=== PATIENT | male | born 1970 | race Caucasian/White ===

== ENCOUNTER 2023-06-22 06:23 | Emergency (ER) | payer MEDICARE, SELFPAY ==
[2023-06-22] VITALS (7 sets, daily range): BP systolic 108–166; BP diastolic 78–101; PULSE 99–113; RESP 12–18; TEMP 36.7–36.9; O2SAT 97–98; BMI 23.6
--- NOTE | 2023-06-22 06:27 | CT_ITS ---
PROCEDURE INFORMATION: Exam: CT Head Without Contrast Exam date and time: 06/22/2023 6:38 AM Age: 53 years old Clinical indication: Other: Seizures; Additional info: New onset seizures TECHNIQUE: Imaging protocol: Computed tomography of the head without contrast. Radiation optimization: All CT scans at this facility use at least one of these dose optimization techniques: automated exposure control; mA and/or kV adjustment per patient size (includes targeted exams where dose is matched to clinical indication); or iterative reconstruction. COMPARISON: No relevant prior studies available. FINDINGS: Brain: Normal. No hemorrhage. Unremarkable white matter. No mass effect. Cerebral ventricles: No ventriculomegaly. Paranasal sinuses: Visualized sinuses are unremarkable. No fluid levels. Mastoid air cells: Visualized mastoid air cells are well aerated. Bones/joints: Unremarkable. No acute fracture. Soft tissues: Unremarkable. IMPRESSION: No acute intracranial abnormality.
--- NOTE | 2023-06-22 06:28 | XR_ITS ---
PROCEDURE INFORMATION: Exam: XR Chest Exam date and time: 06/22/2023 7:33 AM Age: 53 years old Clinical indication: Other: Hyponatremia, seizures TECHNIQUE: Imaging protocol: Radiologic exam of the chest. Views: 1 view. COMPARISON: CT ANGIO NECK 06/22/2023 7:31 AM FINDINGS: Tubes, catheters and devices: Surgical clips over the left scapula Lungs: Unremarkable. No consolidation. Pleural spaces: Unremarkable. No pleural effusion. No pneumothorax. Heart/Mediastinum: Unremarkable. No cardiomegaly. Bones/joints: Unremarkable. IMPRESSION: No acute process
--- NOTE | 2023-06-22 06:35 | [facility].EDGENADL ---
Discharge Plan Disposition Patient Disposition: Home, Self-Care Referrals Follow up/Referrals: Ovidio Almeida MD [Primary Care Provider] - See instructions Activity Restrictions/Add. Instructions Additional Instructions/Restrictions: Follow-up with your family doctor regarding this visit to the emergency department. Also discussed follow-up with neurology, Dr. Davis to get a referral for further seizure workup. Call your family doctor to establish care for this visit to the emergency department and schedule follow-up within 48 hours to ensure improvement. If you have any worsening of your condition or any other concerning signs or symptoms, return to the emergency department or your primary care doctor for further evaluation. Seizure precautions - do not do any of these activities until cleared by your neurologist: 1) avoid sleep deprivation 2) avoid open bodies of water and open flames 3) avoid swimming alone 4) take showers, do not take baths 5) avoid any situation where loss of consciousness may predispose to injury or 6) avoid driving Clinical Impressions Clinical Impression: Seizure-like activity, Panic attack Instructions Patient Instructions: DI for Seizure Disorder -- Adult, DI for Seizure (Not Epilepsy/Seizure Disorder), DI for Seizure Disorder -- Child Discharge ED Provider: Joey Ortega General Adult HPI <Chuyita Prince MD - Last Filed: 06/22/23 07:17> General Chief complaint: Seizure Stated complaint: Seizure Time Seen by Provider: 06/22/23 06:27 History of Present Illness HPI narrative: Alex Hillman is a 53-year-old male with previous medical history of hyponatremia and insulin-dependent type 2 diabetes currently not on treatment presenting with new onset seizures. Patient's is at the bedside and supplements the history. She states he drinks a case of bottled arteaga every day and is constantly drinking water and other drinks. His sugar is uncontrolled and he refuses to take any medications aside from Lyrica for his postherpetic neuralgia. Approximately 24 hours ago patient began to seem confused. His describes tangential speech and seeing things that were not there. Over the following hours he had approximately 5 episodes of transiently becoming dazed then having involuntary spasms of his face and then seeming tired afterwards concerning for possible seizure. His encouraged him to be evaluated at that time but he refused. Overnight he had 3 episodes that were more consistent with overt generalized tonic-clonic seizures. His describes episodes up to 5 minutes in duration of generalized tonic-clonic seizures involving convulsions and rigidity of bilateral upper extremities. He had incontinence to urine. She called EMS this morning and when they arrived they reported that he was postictal. No medications were given. He has never had a seizure before in his life. No recent fevers or illness prior to mental status changes in the last 24 hours. No known head trauma. Related Data Allergies Allergy/AdvReac Type Severity Reaction Status Date / Time Penicillins Allergy Verified 06/22/23 06:35 [facility] <Chuyita Prince MD - Last Filed: 06/22/23 07:17> [facility] Disclaimer: The information contained in this section may have been updated after the patient was seen, as this information can be updated by other users. Social History (Updated 06/22/23 @ 07:17 by Chuyita Prince MD) Smoking Status: Current every day smoker alcohol intake: former current occupational status: other Travel in the last 8 weeks: None <Chuyita Prince MD - Last Filed: 06/22/23 07:17> ROS Obtained: Yes All systems reviewed & no additional complaints except as documented Physical Exam <Chuyita Prince MD - Last Filed: 06/22/23 07:17> General General appearance: alert and in no apparent distress Comment: Oriented and conversant but chronically ill-appearing. Head Head exam: atraumatic, normocephalic and normal inspection Eye Eye exam: Present normal appearance, PERRL and EOMI ENT ENT exam: Present normal exam, normal oropharynx, mucous membranes dry, normal external ear exam and other (No tongue bite) Neck Neck exam: Present normal inspection, full ROM and trachea midline; Absent meningismus or lymphadenopathy Chest Chest inspection: Present normal inspection and symmetric chest wall rise; Absent tenderness Respiratory Respiratory exam: Present normal lung sounds bilaterally; Absent respiratory distress Cardiovascular Cardiovascular exam: Present regular rate and normal rhythm; Absent JVD Abdominal Exam Abdominal exam: Present soft and normal bowel sounds; Absent distention, tenderness or guarding Extremities Exam Extremities exam: Present normal inspection, full ROM and normal capillary refill; Absent calf tenderness Back Exam Back exam: Present normal inspection; Absent tenderness Neurological Exam Neurological exam: Present alert and oriented X3 Psychiatric Psychiatric exam: Present normal affect and normal mood Skin Skin exam: Present dry and pallor Lymphatic Lymphatic Findings: no adenopathy Medical Decision Making <Chuyita Prince MD - Last Filed: 06/22/23 07:17> Anthony Inquiry Pt receiving controlled substance: No Vital Signs: 06/22/23 06:23 06/22/23 07:00 06/22/23 08:00 Temperature 98.5 F Temperature Source Oral Pulse Rate 106 H 99 H Pulse Rate [Left] 107 H Respiratory Rate 18 18 12 Blood Pressure 127/81 108/78 L Blood Pressure [Right Arm] 141/94 H Blood Pressure Mean [Right Arm] 109 Blood Pressure Source [Right Arm] Automatic Cuff Blood Pressure Position [Right Arm] Sitting 02 Sat by Pulse Oximetry 97 97 97 Oxygen Delivery Method Room Air Room Air 06/22/23 08:30 06/22/23 09:00 Temperature Temperature Source Pulse Rate 113 H Pulse Rate [Left] Respiratory Rate 18 14 Blood Pressure 139/83 135/85 Blood Pressure [Right Arm] Blood Pressure Mean [Right Arm] Blood Pressure Source [Right Arm] Blood Pressure Position [Right Arm] 02 Sat by Pulse Oximetry 98 Oxygen Delivery Method Room Air Lab Data Lab Results 06/22/23 06:25: WBC 7.8, RBC 5.03, Hgb 13.9 L, Hct 42.7, MCV 84.8, MCH 27.6, MCHC 32.6, RDW 13.5, Plt Count 300, MPV 7.2 L, Neut % (Auto) 74.4, Lymph % (Auto) 16.4, [place] % (Auto) 6.9, Eos % (Auto) 1.7, Baso % (Auto) 0.6, Neut # (Auto) 5.8, Lymph # (Auto) 1.3, [place] # (Auto) 0.5, Eos # (Auto) 0.1, Baso # (Auto) 0.0, Sodium 129 L, Potassium 4.9, Chloride 95 L, Carbon Dioxide 27, Anion Gap 11.9, BUN 12, Creatinine 0.50 L, Estimated Creat Clear 183, Estimated GFR 175, Est GFR ( Amer) 211, Glucose 507 H*, Calcium 9.3, Phosphorus 3.8, Magnesium 2.0, Total Bilirubin 0.5, AST 23, ALT 23, Alkaline Phosphatase 219 H, Total Creatine Kinase 51 L, Total Protein 6.7, Albumin 3.8, Globulin 2.9, Albumin/Globulin Ratio 1.3, Plasma/Serum Alcohol < 10 06/22/23 06:28: VBG pH 7.34, VBG pCO2 50.6, VBG pO2 33.9, VBG HCO3 26.7, VBG Total CO2 28.3 H, VBG O2 Saturation 63.0, VBG Base Excess 1.0 06/22/23 07:00: Lactate 2.0 06/22/23 07:20: Urine Color Yellow, Urine Appearance Clear, Urine pH 6.0, Ur Specific [place] 1.010, Urine Protein 2+, Urine Glucose (UA) 3+, Urine Ketones Negative, Urine Blood 1+, Urine Nitrate Negative, Urine Bilirubin Negative, Urine Urobilinogen 0.2, Ur Leukocyte Esterase Negative, Urine RBC 3-5, Urine WBC Occasional, Ur Squamous Epith Cells Occasional, Urine Bacteria Trace, Ur Amphetamines Screen Negative, U Benzodiazepines Scrn Negative 06/22/23 06:25 06/22/23 06:25 Orders (Tests/Meds): ED MEDICATIONS Generic Name Dose Route Start Last Admin Trade Name Edward PRN Reason Stop Dose Admin Sodium Chloride 10 ml 06/22/23 07:43 06/22/23 07:45 Sodium Chloride 0.9% 10ml Syr (Rad Only) IV 07/22/23 07:42 10 ml NEEDED PRN Administration Maintain IV Site Discontinued Medications Generic Name Dose Route Start Last Admin Trade Name Freq PRN Reason Stop Dose Admin Acetaminophen 1,000 mg 06/22/23 07:57 06/22/23 08:40 Acetaminophen 1,000mg/100ml Vial IV 06/22/23 07:58 1,000 mg ONCE ONE Administration Lactated Ringer's 1,000 mls @ 999 mls/hr 06/22/23 06:27 06/22/23 06:43 Lactated Ringer's 1000 Ml Bag IV 06/22/23 07:27 999 mls/hr .Q1H1M ONE Administration Levetiracetam 4,500 mg/ Sodium 145 mls @ 290 mls/hr 06/22/23 06:31 06/22/23 06:43 Chloride IV 06/22/23 06:32 290 mls/hr ONCE ONE Administration Insulin Human Regular 7 unit 06/22/23 07:57 06/22/23 08:41 Insulin Human Regular 100 Units/Ml 10ml Vial 0.1 unit/kg (7 unit) 06/22/23 07:58 7 unit IV Administration ONCE ONE Iopamidol 100 ml 06/22/23 07:43 06/22/23 07:45 Iopamidol-370 (76%);100ml Bottle IV 06/22/23 07:44 100 ml ONCE ONE Administration Ketorolac Tromethamine 15 mg 06/22/23 07:57 06/22/23 08:40 Ketorolac 30mg/Ml Vial IV 06/22/23 07:58 15 mg ONCE ONE Administration Prochlorperazine Edisylate 10 mg 06/22/23 07:57 06/22/23 08:41 Prochlorperazine 10mg/2ml Vial IV 06/22/23 07:58 10 mg ONCE ONE Administration Sodium Chloride 50 ml 06/22/23 07:43 06/22/23 07:45 0.9 % Sodium Chloride 50 Ml Vial IV 06/22/23 07:44 50 ml ONCE ONE Administration ORDERS Category Date Time Status CT angio head Stat Cat Scan 06/22/23 06:[address] angio neck Stat Cat Scan 06/22/23 06:[address] head/brain wo con Stat Cat Scan 06/22/23 06:27 Completed XR chest portable Stat Exams 06/22/23 06:28 Completed CBC [Complete Blood Count Auto Diff] Stat Lab 06/22/23 06:25 Completed CK [Creatine Kinase] Stat Lab 06/22/23 06:25 Completed CMP [Comprehensive Metabolic Panel] Stat Lab 06/22/23 06:25 Completed Ethanol [Ethyl Alcohol] Stat Lab 06/22/23 06:25 Completed Lactate Venous Routine Lab 06/22/23 06:45 Received Lactic Acid Stat Lab 06/22/23 07:00 Completed Magnesium Stat Lab 06/22/23 06:25 Completed Phosphorous Stat Lab 06/22/23 06:25 Completed UDS [Drug Screen,Urine] Stat Lab 06/22/23 07:20 Results Urinalysis and Microscopic Stat Lab 06/22/23 07:20 Completed VBG [Venous Blood Gas] Stat RT 06/22/23 06:28 Completed ECG Data Tracing #1: I reviewed this ECG and interpreted as documented below: ECG initial impression date: 06/22/23 ECG initial impression time: 06:56 ECG normal with no acute: arrhythmias, ischemia, conduction abnormalities, chamber hypertrophy Arrhythmias present: sinus tach Medical Decision Narrative: Immediately upon arrival patient is alert and oriented and conversant. Fingerstick blood glucose is 542. 53-year-old male with previous medical history of uncontrolled type 2 diabetes and reported history of hyponatremia and excessive water intake presenting with new onset seizures is concerning for numerous causes such as severe hyponatremia, hyperglycemia, intracranial hemorrhage, less likely TIA however considered this given patient's 's account of his unilateral face spasms, among other endocrinologic and metabolic causes. Also considered TEST AND BALANCE ENGINEER malignancy, drug intoxication or withdrawal, alcohol withdrawal (but patient's states he rarely if ever uses alcohol). Administered Keppra load with 60 mg/kg and 1 L LR to begin treatment for hyperglycemia and suspected hyponatremia. Ordered CBC, CMP, mag, Phos, CK, urinalysis, UDS, ethanol level, CT head without, CTA head and neck, chest x-ray 2 view given concern for possible aspiration risk. This workup was pending at time of transition of care to the oncoming physician. Patient was hemodynamically stable with no seizure symptoms at the time of transition of care. Seizure precautions in place. <Joey Ortega MD - Last Filed: 06/22/23 09:52> Vital Signs: 06/22/23 06:23 06/22/23 07:00 06/22/23 08:00 Temperature 98.5 F Temperature Source Oral Pulse Rate 106 H 99 H Pulse Rate [Left] 107 H Respiratory Rate 18 18 12 Blood Pressure 127/81 108/78 L Blood Pressure [Right Arm] 141/94 H Blood Pressure Mean [Right Arm] 109 Blood Pressure Source [Right Arm] Automatic Cuff Blood Pressure Position [Right Arm] Sitting 02 Sat by Pulse Oximetry 97 97 97 Oxygen Delivery Method Room Air Room Air 06/22/23 08:30 06/22/23 09:00 Temperature Temperature Source Pulse Rate 113 H Pulse Rate [Left] Respiratory Rate 18 14 Blood Pressure 139/83 135/85 Blood Pressure [Right Arm] Blood Pressure Mean [Right Arm] Blood Pressure Source [Right Arm] Blood Pressure Position [Right Arm] 02 Sat by Pulse Oximetry 98 Oxygen Delivery Method Room Air Lab Data Lab Results 06/22/23 06:25: WBC 7.8, RBC 5.03, Hgb 13.9 L, Hct 42.7, MCV 84.8, MCH 27.6, MCHC 32.6, RDW 13.5, Plt Count 300, MPV 7.2 L, Neut % (Auto) 74.4, Lymph % (Auto) 16.4, [place] % (Auto) 6.9, Eos % (Auto) 1.7, Baso % (Auto) 0.6, Neut # (Auto) 5.8, Lymph # (Auto) 1.3, [place] # (Auto) 0.5, Eos # (Auto) 0.1, Baso # (Auto) 0.0, Sodium 129 L, Potassium 4.9, Chloride 95 L, Carbon Dioxide 27, Anion Gap 11.9, BUN 12, Creatinine 0.50 L, Estimated Creat Clear 183, Estimated GFR 175, Est GFR ( Amer) 211, Glucose 507 H*, Calcium 9.3, Phosphorus 3.8, Magnesium 2.0, Total Bilirubin 0.5, AST 23, ALT 23, Alkaline Phosphatase 219 H, Total Creatine Kinase 51 L, Total Protein 6.7, Albumin 3.8, Globulin 2.9, Albumin/Globulin Ratio 1.3, Plasma/Serum Alcohol < 10 06/22/23 06:28: VBG pH 7.34, VBG pCO2 50.6, VBG pO2 33.9, VBG HCO3 26.7, VBG Total CO2 28.3 H, VBG O2 Saturation 63.0, VBG Base Excess 1.0 06/22/23 07:00: Lactate 2.0 06/22/23 07:20: Urine Color Yellow, Urine Appearance Clear, Urine pH 6.0, Ur Specific [place] 1.010, Urine Protein 2+, Urine Glucose (UA) 3+, Urine Ketones Negative, Urine Blood 1+, Urine Nitrate Negative, Urine Bilirubin Negative, Urine Urobilinogen 0.2, Ur Leukocyte Esterase Negative, Urine RBC 3-5, Urine WBC Occasional, Ur Squamous Epith Cells Occasional, Urine Bacteria Trace, Ur Amphetamines Screen Negative, U Benzodiazepines Scrn Negative Orders (Tests/Meds): ED MEDICATIONS Generic Name Dose Route Start Last Admin Trade Name Freq PRN Reason Stop Dose Admin Sodium Chloride 10 ml 06/22/23 07:43 06/22/23 07:45 Sodium Chloride 0.9% 10ml Syr (Rad Only) IV 07/22/23 07:42 10 ml NEEDED PRN Administration Maintain IV Site Discontinued Medications Generic Name Dose Route Start Last Admin Trade Name Edward PRN Reason Stop Dose Admin Acetaminophen 1,000 mg 06/22/23 07:57 06/22/23 08:40 Acetaminophen 1,000mg/100ml Vial IV 06/22/23 07:58 1,000 mg ONCE ONE Administration Lactated Ringer's 1,000 mls @ 999 mls/hr 06/22/23 06:27 06/22/23 06:43 Lactated Ringer's 1000 Ml Bag IV 06/22/23 07:27 999 mls/hr .Q1H1M ONE Administration Levetiracetam 4,500 mg/ Sodium 145 mls @ 290 mls/hr 06/22/23 06:31 06/22/23 06:43 Chloride IV 06/22/23 06:32 290 mls/hr ONCE ONE Administration Insulin Human Regular 7 unit 06/22/23 07:57 06/22/23 08:41 Insulin Human Regular 100 Units/Ml 10ml Vial 0.1 unit/kg (7 unit) 06/22/23 07:58 7 unit IV Administration ONCE ONE Iopamidol 100 ml 06/22/23 07:43 06/22/23 07:45 Iopamidol-370 (76%);100ml Bottle IV 06/22/23 07:44 100 ml ONCE ONE Administration Ketorolac Tromethamine 15 mg 06/22/23 07:57 06/22/23 08:40 Ketorolac 30mg/Ml Vial IV 06/22/23 07:58 15 mg ONCE ONE Administration Prochlorperazine Edisylate 10 mg 06/22/23 07:57 06/22/23 08:41 Prochlorperazine 10mg/2ml Vial IV 06/22/23 07:58 10 mg ONCE ONE Administration Sodium Chloride 50 ml 06/22/23 07:43 06/22/23 07:45 0.9 % Sodium Chloride 50 Ml Vial IV 06/22/23 07:44 50 ml ONCE ONE Administration ORDERS Category Date Time Status CT angio head Stat Cat Scan 06/22/23 06:[address] angio neck Stat Cat Scan 06/22/23 06:[address] head/brain wo con Stat Cat Scan 06/22/23 06:27 Completed XR chest portable Stat Exams 06/22/23 06:28 Completed CBC [Complete Blood Count Auto Diff] Stat Lab 06/22/23 06:25 Completed CK [Creatine Kinase] Stat Lab 06/22/23 06:25 Completed CMP [Comprehensive Metabolic Panel] Stat Lab 06/22/23 06:25 Completed Ethanol [Ethyl Alcohol] Stat Lab 06/22/23 06:25 Completed Lactate Venous Routine Lab 06/22/23 06:45 Received Lactic Acid Stat Lab 06/22/23 07:00 Completed Magnesium Stat Lab 06/22/23 06:25 Completed Phosphorous Stat Lab 06/22/23 06:25 Completed UDS [Drug Screen,Urine] Stat Lab 06/22/23 07:20 Results Urinalysis and Microscopic Stat Lab 06/22/23 07:20 Completed VBG [Venous Blood Gas] Stat RT 06/22/23 06:28 Completed Medical Decision Narrative: Immediately upon arrival patient is alert and oriented and conversant. Fingerstick blood glucose is 542. 53-year-old male with previous medical history of uncontrolled type 2 diabetes and reported history of hyponatremia and excessive water intake presenting with new onset seizures is concerning for numerous causes such as severe hyponatremia, hyperglycemia, intracranial hemorrhage, less likely TIA however considered this given patient's 's account of his unilateral face spasms, among other endocrinologic and metabolic causes. Also considered TEST AND BALANCE ENGINEER malignancy, drug intoxication or withdrawal, alcohol withdrawal (but patient's states he rarely if ever uses alcohol). Administered Keppra load with 60 mg/kg and 1 L LR to begin treatment for hyperglycemia and suspected hyponatremia. Ordered CBC, CMP, mag, Phos, CK, urinalysis, UDS, ethanol level, CT head without, CTA head and neck, chest x-ray 2 view given concern for possible aspiration risk. This workup was pending at time of transition of care to the oncoming physician. Patient was hemodynamically stable with no seizure symptoms at the time of transition of care. Seizure precautions in place. Jordan: I assume primary responsibility for this patient after signout from previous physician. On my evaluation, patient continues without seizure activity here in the emergency department. Hemodynamically stable, nontachycardic, normotensive, afebrile. Alert and oriented, neurovascularly intact. On my evaluation, patient states that he is pretty sure he had a panic attack. He states that he was having a panic attack, started having wild thrashing movements that lasted 15 to 20 minutes, he remembers the entire episode. Family at bedside states that he was wiping his eyes during this episode. No loss of consciousness. Independent interpretation workup with no leukocytosis, normal VBG with normal lactic acid. Mild hyponatremia 129, patient received a little over a liter of lactated Ringer's for this. Potassium normal. Hyperglycemic 507, given 7 units insulin (0.1 units/kg). Phosphorus, magnesium normal. Calcium normal. LFTs nonactionable. CK within normal limits. Urinalysis without UTI and toxicology labs negative. EKG sinus rhythm without ST or T wave changes concerning for acute ischemia. No AK, QRS, QT prolongation. No delta or epsilon waves. CT head without acute intracranial hemorrhage, CTA head and neck without acute intracranial abnormality. No aneurysm. Patient states that he is most concerned because many of his family members have of intracranial aneurysms, reassurance and results given. Because patient without seizure activity here, loaded with Keppra prior to my arrival at 60 mg/kg. Patient's history and physical exam as well as workup are not consistent with generalized tonic-clonic seizure, although cannot rule out focal seizure activity. Because patient at baseline without signs or symptoms of clinical decompensation, deemed appropriate for discharge. Results were relayed to patient who voiced understanding and were agreeable to outpatient management and follow up. At the time of discharge the patient was hemodynamically stable, tolerating PO, and mobilizing appropriately. Critical Care <Chuyita Prince MD - Last Filed: 06/22/23 07:17> Critical Care Time Critical Care Time: No
--- NOTE | 2023-06-22 06:41 | CT_ITS ---
PROCEDURE INFORMATION: Exam: CTA Head With Contrast, Arteriography Exam date and time: 06/22/2023 7:31 AM Age: 53 years old Clinical indication: Convulsions / seizures; Additional info: Seizures vs tias TECHNIQUE: Imaging protocol: Computed tomographic angiography of the head with contrast. Exam focused on the arteries. 3D rendering (Not supervised by radiologist): MIP and/or 3D reconstructed images were created by the technologist. Radiation optimization: All CT scans at this facility use at least one of these dose optimization techniques: automated exposure control; mA and/or kV adjustment per patient size (includes targeted exams where dose is matched to clinical indication); or iterative reconstruction. Contrast material: ISOVUE; Contrast volume: 100 ml; Contrast route: INTRAVENOUS (IV); COMPARISON: CT HEAD/BRAIN WO CON 06/22/2023 6:38 AM FINDINGS: ANTERIOR CIRCULATION: Right internal carotid artery: There is [id number] stenosis of the cavernous and supraclinoid segments of the right internal carotid artery secondary to soft and calcified plaque. Right middle cerebral artery: No occlusion or significant stenosis. No aneurysm. Right anterior cerebral artery: No occlusion or significant stenosis. No aneurysm. Left internal carotid artery: There is mild stenosis of the cavernous and supraclinoid segments of the left internal carotid artery secondary to soft and calcified plaque. Left middle cerebral artery: No occlusion or significant stenosis. No aneurysm. Left anterior cerebral artery: No occlusion or significant stenosis. No aneurysm. POSTERIOR CIRCULATION: Right vertebral artery: No occlusion or significant stenosis. No aneurysm. Left vertebral artery: No occlusion or significant stenosis. No aneurysm. Basilar artery: No occlusion or significant stenosis. No aneurysm. Right posterior cerebral artery: No occlusion or significant stenosis. No aneurysm. Left posterior cerebral artery: No occlusion or significant stenosis. No aneurysm. Brain: No definite mass, mass effect, or midline shift. Cerebral ventricles: No ventriculomegaly. Bones/joints: Unremarkable. No acute fracture. Soft tissues: Unremarkable. IMPRESSION: Bilateral internal carotid artery stenosis. Otherwise patent [id number].
--- NOTE | 2023-06-22 06:41 | CT_ITS ---
PROCEDURE INFORMATION: Exam: CTA Neck With Contrast Exam date and time: 06/22/2023 7:31 AM Age: 53 years old Clinical indication: Convulsions / seizures; Additional info: Seizures vs tias TECHNIQUE: Imaging protocol: Computed tomographic angiography of the neck with contrast. Exam focused on the cervical segments of the vasculature. 3D rendering (Not supervised by radiologist): MIP and/or 3D reconstructed images were created by the technologist. Radiation optimization: All CT scans at this facility use at least one of these dose optimization techniques: automated exposure control; mA and/or kV adjustment per patient size (includes targeted exams where dose is matched to clinical indication); or iterative reconstruction. Contrast material: ISOVUE; Contrast volume: 100 ml; Contrast route: INTRAVENOUS (IV); COMPARISON: CT ANGIO HEAD 06/22/2023 7:31 AM FINDINGS: Right common carotid artery: There is stenosis of the distal segment measuring less than 50% secondary to soft plaque. Right internal carotid artery: No stenosis of the extracranial segment. No dissection or occlusion. Right external carotid artery: No occlusion or stenosis of the origin. Left common carotid artery: No stenosis. No dissection or occlusion. Left internal carotid artery: No stenosis of the extracranial segment. No dissection or occlusion. Left external carotid artery: No occlusion or stenosis of the origin. Right vertebral artery: No stenosis. No dissection or occlusion. Left vertebral artery: No stenosis. No dissection or occlusion. Left subclavian artery: There is focal occlusion of the left subclavian artery approximately 1 cm distal to the origin of the left vertebral artery. There is mild to moderate multifocal stenosis of the remainder of the left subclavian artery and there is occlusion of most of the left axillary artery with distal reconstitution of flow in the brachial artery. Soft tissues: Normal. No significant soft tissue swelling. Bones/joints: No acute fracture. IMPRESSION: 1. 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 There is also focal occlusion of the left subclavian artery just distal to the origin of the left vertebral artery. 2. Mild stenosis of the proximal right common carotid artery. REFERENCES: NASCET CRITERIA. The degree of stenosis in the cervical segment of the internal carotid artery is based on NASCET criteria. Normal is no stenosis. Mild is less than 50% stenosis. Moderate is 50-69% stenosis. Severe is 70% to 99% stenosis. Total occlusion is no detectable patent lumen. THIS REPORT CONTAINS FINDINGS THAT MAY BE CRITICAL TO PATIENT CARE. The findings were verbally communicated via telephone conference with Dr. Joey Ortega at 9:35 AM EST on 06/22/2023. The findings were acknowledged and understood.
[2023-06-22 06:43] LABS: VBG HCO3 26.7 mmol/L (23-30); VBG PCO2 50.6 mmol/L (35-51); VBG PH 7.34 mmol/L (7.31-7.41); VBG PO2 33.9 mmol/L (28-40); VBG Total CO2 28.3 mmol/L (23-27)
[2023-06-22] MEDS: levETIRAcetam 4,500 MG in 0.9 % SODIUM CHLORIDE 100 ML 290 MG IV (06:43)
[2023-06-22] MEDS: LACTATED RINGERS 1000ML 1,000 ML 999 ML IV (06:43)
--- NOTE | 2023-06-22 06:46 | PC.NURSE ---
Seizure pads placed at time of transfer to ER stretcher, fall risk and allergy bracelet placed on pt
[2023-06-22 06:48] LABS: Basophils % 0.6 % (0.1-2.0); Eosinophils # 0.1 K/mm3 (0.0-0.4); Eosinophils % 1.7 % (0.1-12.0); Hematocrit 42.7 % (42.0-52.0); Hemoglobin 13.9 g/dL (14.1-18.0); Lymphocytes # 1.3 K/mm3 (0.7-4.5); Lymphocytes % 16.4 % (10-50); Mean Corpuscular HGB Conc 32.6 g/dL (31.8-35.4); Mean Corpuscular Hemoglobin 27.6 pg (27.0-31.2); Mean Corpuscular Volume 84.8 fl (80-94); Mean Platelet Volume 7.2 fl (7.4-10.4); Monocytes # 0.5 K/mm3 (0.1-1.0); Monocytes % 6.9 % (1.7-9.3); Neutrophils # 5.8 K/mm3 (1.8-7.8); Neutrophils % 74.4 % (37.0-80.0); Platelet Count 300 K/mm3 (142-424); Red Blood Count 5.03 M/mm3 (4.60-6.20); Red Cell Distribution Width 13.5 % (11.5-17.5); White Blood Count 7.8 K/mm3 (4.8-10.8)
[2023-06-22 06:50] LABS: Alanine Aminotransferase 23 U/L (12-78); Albumin Level 3.8 g/dl (3.5-5.0); Albumin/Globulin Ratio 1.3 (1.1-1.8); Alkaline Phosphatase 219 U/L (38-126); Anion Gap 11.9 mEq/L (5-15); Aspartate Amino Transferase 23 U/L (17-59); Bilirubin,Total 0.5 mg/dl (0.2-1.3); Blood Urea Nitrogen 12 mg/dl (9-20); Calcium 9.3 mg/dl (8.4-10.2); Carbon Dioxide 27 mmol/L (22.0-30.0); Chloride 95 mmol/L (98-107); Creatine Kinase 51 U/L (55-170); Creatinine Clearance Estimated 183 mL/min (50-200); Estimated Glomerular Filt Rate 175 ml/min (>60); GFR (African American) 211 ML/MIN (>60); Globulin 2.9 g/dL (1.3-3.2); Phosphorous 3.8 mg/dl (2.5-4.5); Potassium 4.9 mmoL/L (3.5-5.1); Sodium 129 mmol/L (136-145); Total Protein,Serum 6.7 g/dl (6.3-8.2)
[2023-06-22 06:52] LABS: Ethyl Alcohol < 10 mg/dl (0-10)
[2023-06-22 06:53] LABS: Glucose 507 mg/dl (74-100)
--- NOTE | 2023-06-22 06:54 | ECG_ITS ---
APPROVED REPORT Exam: Resting ECG HR:110 bpm ECG Measurements Heart Rate 110 AXES TN 189 P 65 QRSd 97 QRS -19 QT 316 T 59 QTc 381 Conclusion SINUS TACHYCARDIA Electronically signed by : TEZ WAKEFIELD, 06/22/2023 07:32:32
--- NOTE | 2023-06-22 07:03 | PC.NURSE ---
Bladder scan >433ml
--- NOTE | 2023-06-22 07:26 | PC.NURSE ---
pt gone to ct
[2023-06-22 07:32] LABS: Microscopic, Urine URINE MICROSCOPIC (MICROSCOPIC)
[2023-06-22 07:33] LABS: Appearance,Urine CLEAR (Clear); Bilirubin,Urine Negative (Negative); Blood, Urine 1+ (Negative); Color,Urine YELLOW (Yellow); Glucose,Urine (UA) 3+ (Negative); Ketones,Urine Negative (Negative); Leukocyte Esterase,Urine Negative (Negative); Nitrate,Urine Negative (Negative); Protein,Urine 2+ (Negative); Urobilinogen,Urine 0.2 EU/dl (0.2)
--- NOTE | 2023-06-22 07:39 | PC.NURSE ---
pt arrived back to room from ct
[2023-06-22] MEDS: IOPAMIDOL-370 (76%);100ML BOTTLE 100 ML IV (07:45)
[2023-06-22] MEDS: 0.9 % SODIUM CHLORIDE 50 ML VIAL IV (07:45)
[2023-06-22] MEDS: SODIUM CHLORIDE 0.9% 10ML SYR (RAD ONLY) 10 ML IV (07:45)
[2023-06-22 07:55] LABS: Bacteria,Urine Trace /lpf; Squamous Epithelial Cell,Urine Occasional #/hpf (0-5); WBC,Urine Occasional #/hpf (0-3)
[2023-06-22] MEDS: ACETAMINOPHEN 1,000MG/100ML VIAL 1000 MG IV (08:40)
[2023-06-22] MEDS: KETOROLAC 30MG/ML VIAL 15 MG IV (08:40)
[2023-06-22] MEDS: PROCHLORPERAZINE 10MG/2ML VIAL 10 MG IV (08:41)
[2023-06-22] MEDS: INSULIN HUMAN REGULAR 100 UNITS/ML 10ML VIAL 7 UNIT IV (08:41)
--- NOTE | 2023-06-22 08:43 | PC.NURSE ---
pt was given a warm blanket at bs and call light in reach
--- NOTE | 2023-06-22 09:30 | PC.NURSE ---
JEANETTE CALLING TO SPEAK WITH PATRICIA RAO
[2023-06-22 09:45] LABS: Amphetamine/Metha Screen,Urine Negative ng/ml (<1000)
[2023-06-22 09:46] LABS: Benzodiazepines Screen,Urine Negative ng/ml (<200); Cannabinoid Screen,Urine Negative ng/ml (<50)
[2023-06-22 09:48] LABS: Methadone Screen,Urine Negative ng/ml (<300); Phencyclidine Screen,Urine Negative ng/ml (<25)
[2023-06-22 09:49] LABS: Opiate Screen,Urine Negative ng/ml (<300)
[2023-06-22 09:55] LABS: Cocaine Screen,Urine Negative ng/ml (<300)
[2023-06-22 10:11] LABS: Barbiturates Screen,Urine Negative ng/ml (<200)
== END 2023-06-22 10:33 | disposition home or self-care (01) ==
PROVIDERS: Emergency Medicine; Emergency Provider Emergency Medicine; PCP Emergency Medicine
DX: R56.9 Unspecified convulsions (principal); E11.65 Type 2 diabetes mellitus with hyperglycemia; R00.0 Tachycardia, unspecified; E87.1 Hypo-osmolality and hyponatremia; F41.0 Panic disorder [episodic paroxysmal anxiety]; F17.210 Nicotine dependence, cigarettes, uncomplicated
CPT/HCPCS: 70450; 70496; 70498; 71045; 80053; 80307; 81001; 82550; 82803; 83605; 83735; 84100; 85025; 93005; 96365; 96375; 99285; J0131; J1953; Q9967